=== PATIENT | male | born 1950 | race Caucasian/White ===

== ENCOUNTER 2016-10-16 07:25 | Day surgery (SDC) | payer MEDICARE ==
[~2016-10-16] VITALS: Ht 177.8 cm; Wt 133.8 kg
[2016-10-16] MEDS ORDERED: DEXAMETHASONE SOD PHOSPHATE 4 MG/ML VIAL IVP ONE (08:53)
[2016-10-16] MEDS ORDERED: fentaNYL CITRATE/PF 100 MCG/2 ML AMP IVP ONE (08:53)
[2016-10-16] MEDS ORDERED: MIDAZOLAM HCL 5 MG/5 ML VIAL IVP ONE (08:53)
[2016-10-16] MEDS ORDERED: CEFAZOLIN 2 GM IVPB PREMIX 50 ML IV ONE (08:53)
[2016-10-16] MEDS ORDERED: SEVOFLURANE 15 MIN GAS INH ONE (08:53)
[2016-10-16] MEDS ORDERED: ROCURONIUM BROMIDE 10 MG/ML (ZEMURON) IV ONE (08:53)
[2016-10-16] MEDS ORDERED: METOCLOPRAMIDE HCL 10 MG/2 ML VIAL IVP ONE (08:53)
[2016-10-16] MEDS ORDERED: LR 1,000 ML IV.SOLN IV ONE (08:53)
[2016-10-16] MEDS ORDERED: ACETAMINOPHEN WITH CODEINE 12.5 ML UDC PO PRN (10:15)
[2016-10-16] MEDS ORDERED: LR 1,000 ML IV ONE (10:16)
[2016-10-16] MEDS ORDERED: fentaNYL CITRATE/PF 100 MCG/2 ML AMP ONE (10:28)
[2016-10-16] MEDS ORDERED: ONDANSETRON HCL 4 MG/2 ML VIAL IVP PRN ×2 (10:30)
[2016-10-16] MEDS ORDERED: NALOXONE HCL 0.4 MG/ML AMP (NARCAN) IVP PRN (10:30)
[2016-10-16] MEDS ORDERED: DIPHENHYDRAMINE INJ 50 MG/ML VIAL IVP PRN (10:30)
[2016-10-16] MEDS ORDERED: NALBUPHINE HCL 10 MG/ML AMP IVP PRN (10:30)
[2016-10-16] MEDS ORDERED: fentaNYL CITRATE/PF 100 MCG/2 ML AMP IVP PRN ×2 (10:30)
[2016-10-16] MEDS ORDERED: ePHEDrine sulfate 50 MG/ML VIAL IVP PRN (10:30)
[2016-10-16] MEDS ORDERED: ACETAMINOPHEN WITH CODEINE 12.5 ML UDC ONE (11:25)
[2016-10-16 12:12] VITALS: BP_SYST 136
== END 2016-10-16 12:40 | disposition home or self-care (01) ==
LOC: SDS 07:25 → SMU 07:28 → SDS 12:40
PROVIDERS: ATTEND Otolaryngology Plastic Surgery within the Head & Neck
DX: J38.3 Other diseases of vocal cords (principal); K14.9 Disease of tongue, unspecified
CPT/HCPCS: 31536; 88305; J0690; J1100; J2250; J2765; J3010; J7120; 88304